=== PATIENT | male | born 1980 | race Two or more races ===

== ENCOUNTER 2022-07-25 12:15 | Emergency (ER) | payer OTHER ==
[~2022-07-25] VITALS: Ht 182.9 cm; Wt 94.8 kg
[2022-07-25 12:33] VITALS: BP 144/84
--- NOTE | 2022-07-25 13:40 | NUR ---
C/O LEFT KNEE PAIN X 3 DAYS. DENIES TRAUMA. PT STATES" I FEEL CLICKING WHEN I WALK." ALERT TIMES THREE FAMILY AT BEDSIDE. UNLABORED BREATHING AT ROOM AIR. NO OTHER C/O PAIN NOTED.
[2022-07-25] MEDS ORDERED: NAPR-1164 PO (15:22)
--- NOTE | 2022-07-25 15:36 | NUR ---
Patient discharged to home in stable condition. Written and verbal after care instructions given. Patient verbalizes understanding of instruction.
== END 2022-07-25 15:38 | disposition home or self-care (01) ==
LOC: ER 12:26
DX: M25.562 Pain in left knee (principal); Z60.2 Problems related to living alone
CPT/HCPCS: 73564-TC

== ENCOUNTER 2022-11-12 13:32 | Emergency (ER) | payer OTHER ==
[~2022-11-12] VITALS: Ht 188 cm; Wt 93.0 kg
[~2022-11-12 13:32] MED LIST: NAPR-1164 PO
[2022-11-12] MEDS ORDERED: MECLIZINE HCL 25 MG TABLET ONE (14:23)
[2022-11-12] MEDS ORDERED: MECLIZINE HCL 12.5 MG TABLET PO ONE (14:30)
[2022-11-12] MEDS ORDERED: MECL-159 PO (15:10)
[2022-11-12 15:17] VITALS: BP 117/71
--- NOTE | 2022-11-12 15:17 | NUR ---
Patient discharged to home in stable condition, ambulating. Written and verbal after care instructions given. Patient verbalizes understanding of instruction.
== END 2022-11-12 15:17 | disposition home or self-care (01) ==
LOC: ER 13:33
DX: R42 Dizziness and giddiness (principal); H61.22 Impacted cerumen, left ear; F17.200 Nicotine dependence, unspecified, uncomplicated; Z60.2 Problems related to living alone
CPT/HCPCS: 99283; 93005; J8597